=== PATIENT | male | born 1990 | race Caucasian/White ===

== ENCOUNTER 2016-08-10 09:25 | Emergency (ER) | payer SELFPAY ==
[2016-01-21 06:22] VITALS: BP 134/78
[~2016-08-10] VITALS: Ht 175.3 cm; Wt 122.5 kg
[~2016-08-10 09:25] MED LIST: HYDR50TA PO; IBUP-1060 PO; PRED-220 PO; SULF1TAB24 PO
[2016-08-10 10:28] LABS: OBC FLU VALID
[2016-08-10] MEDS ORDERED: BENZ100C PO (10:56)
--- NOTE | 2016-08-10 10:56 | PHYS DOC ---
Past Medical History Past Medical History: Anxiety, Asthma, Other Additional Past Medical Histor: CHRONIC DENTAL Past Surgical History: No Surgical History Alcohol Use: Occasionally Drug Use: Amphetamine, Cocaine Adult General Chief Complaint Chief Complaint: COUGH HPI HPI Patient is a 26 year old male with history of anxiety who presents today with upper respiratory complaints including body aches, runny nose, and a cough that began 3 days ago. Patient is also complaining of blood sugar problem. Patient states he cyst is a [employer] and she took his blood sugar which was 289 last night and this morning 89. Patient states he is concerned he could have diabetes. Review of Systems Review of Systems Constitutional: Denies fever or chills [] Eyes: Denies change in visual acuity, redness, or eye pain [] HENT: Denies nasal congestion or sore throat [] Respiratory: Denies cough or shortness of breath [] Cardiovascular: No additional information not addressed in HPI [] GI: Denies abdominal pain, nausea, vomiting, bloody stools or diarrhea [] : Denies dysuria or hematuria [] Musculoskeletal: Denies back pain or joint pain [] Integument: Denies rash or skin lesions [] Neurologic: Denies headache, focal weakness or sensory changes [] Endocrine: Blood sugar problem Allergies Allergies Allergies Coded Allergies Type Severity Reaction Last Updated Verified I S O L A T I O N *CONTACT* Allergy Unknown 01/21/16 Yes No Known Medication Allergies Allergy Unknown 01/21/16 Yes Physical Exam Physical Exam Constitutional: Well developed, well nourished, no acute distress, non-toxic appearance. [] HENT: Normocephalic, atraumatic, bilateral external ears normal, oropharynx moist, no oral exudates, nose normal. [] Eyes: PERRLA, EOMI, conjunctiva normal, no discharge. [] Neck: Normal range of motion, no tenderness, supple, no stridor. [] Cardiovascular:Heart rate regular rhythm, no murmur [] Lungs & Thorax: Bilateral breath sounds clear to auscultation [] Abdomen: Bowel sounds normal, soft, no tenderness, no masses, no pulsatile masses. [] Skin: Warm, dry, no erythema, no rash. [] Back: No tenderness, no CVA tenderness. [] Extremities: No tenderness, no cyanosis, no clubbing, ROM intact, no edema. [] Neurologic: Alert and oriented X 3, normal motor function, normal sensory function, no focal deficits noted. [] Psychologic: Affect normal, judgement normal, mood normal. [] Current Patient Data Vital Signs Vital Signs Date Time Temp Pulse Resp B/P Pulse Ox O2 Delivery O2 Flow Rate FiO2 08/10/16 09:30 98.1 118 20 97 Room Air 98.1 Lab Values Laboratory Tests Test 08/10/16 09:45 Influenza Type A Antigen Negative (NEGATIVE) Influenza Type B Antigen Negative (NEGATIVE) EKG EKG [] Radiology/Procedures Radiology/Procedures [] Course & Med Decision Making Course & Med Decision Making Pertinent Labs and Imaging studies reviewed. (See chart for details) This is a well-appearing patient who presents today with multiple complaints including productive cough, body aches, and running nose for 3 days. Patient is also concerned he could have diabetes, he states his blood sugar was 289 last night and 89 this morning. Negative influenza A and B. His upper respiratory symptoms are probably viral. Discharged with instructions to take over-the- counter medicines as needed. Provided him a primary care doctor list for follow- up for his blood sugar. His blood pressure was also 162/92, there is also a chance he could have hypertension. He provided return precautions and discharged in stable condition. Dragon Disclaimer Dragon Disclaimer This electronic medical record was generated, in whole or in part, using a voice recognition dictation system. Departure Departure Impression: Primary Impression: Upper respiratory infection Additional Impressions: Cough Accelerated hypertension Hyperglycemia Disposition: HOME, SELF-CARE Condition: STABLE Referrals: NO PCP (PCP) follow up with a doctor from the list provided in one week Patient Instructions: Upper Respiratory Infection, Adult Additional Instructions: You were seen with symptoms for upper respiratory infection. You can take over- the-counter cold medicines as needed. Your flu test was negative. You need to follow-up with the primary care doctor for your blood pressure which was 162/92 as well as a blood sugars in one week. Come back to the emergency room for any other concerning symptoms. Scripts Benzonatate (Tessalon Perle)100 Mg Capsule1 Cap PO TID #30 CAP Prov:JIN EMANUEL PATROL CAPTAIN 08/10/16 Problem Qualifiers Primary Impression: Upper respiratory infection URI type: unspecified URI Qualified Code: J06.9 - Acute upper respiratory infection, unspecified MUTUNGAJIN PATROL CAPTAIN Aug 10, 2016 10:56
== END 2016-08-10 11:09 | disposition home or self-care (01) ==
LOC: ER 09:25
DX: J06.9 Acute upper respiratory infection, unspecified (principal); M79.1 Myalgia; R73.9 Hyperglycemia, unspecified; I10 Essential (primary) hypertension; J45.909 Unspecified asthma, uncomplicated; F41.9 Anxiety disorder, unspecified; F15.10 Other stimulant abuse, uncomplicated; F14.10 Cocaine abuse, uncomplicated; Z91.041 Radiographic dye allergy status
CPT/HCPCS: 87804; 99284

== ENCOUNTER 2018-03-20 08:02 | Emergency (ER) | payer SELFPAY ==
[~2018-03-20] VITALS: Ht 175.3 cm; Wt 113.4 kg
[~2018-03-20 08:02] MED LIST changes: +BENZ100C PO
[2018-03-20 08:15] VITALS: BP 151/80
[2018-03-20] MEDS ORDERED: HYDROcodone/APAP 5/325MG 1 TAB TABLET PO ONE (09:00)
--- NOTE | 2018-03-20 09:40 | RAD ---
EXAM: AP, oblique and lateral views of the left knee DATE: 03/20/2018 8:55 AM INDICATION: LEFT KNEE PAIN AFTER FALL COMPARISON: No Prior FINDINGS/ IMPRESSION: Small left knee joint effusion. Cortical offset is seen at the posterior aspect of the tibial spine, possibly nondisplaced fracture. This can be further assessed by CT if clinically indicated. Electronically signed by: Reynaldo Hensley MD (03/20/2018 9:36 AM) [facility]
[2018-03-20] MEDS ORDERED: HYDR-2766 PO (09:55)
--- NOTE | 2018-03-20 09:55 | PHYS DOC ---
Past Medical History Past Medical History: Anxiety, Asthma, Other Additional Past Medical Histor: CHRONIC DENTAL Past Surgical History: No Surgical History Alcohol Use: None Drug Use: Amphetamine, Cocaine Adult General Chief Complaint Chief Complaint: KNEE INJURY HPI HPI Patient is a 27 year old M who presents with left knee pain. Patient reports he twisted his knee late last night. It felt like it gave out. He reports distant prior injury to the knee. He reports pain, swelling. Denies other injury. Review of Systems Review of Systems Cardiovascular: No additional information not addressed in HPI [] Musculoskeletal: Denies back pain. Reports left knee swelling and pain [] Integument: Denies rash or skin lesions [] Neurologic: Denies focal weakness or sensory changes [] All other systems were reviewed and found to be within normal limits, except as documented in this note. Current Medications Current Medications Current Medications Medications (Trade) Dose Ordered Sig/Josee Start Time Stop Time Status Last Admin Dose Admin Acetaminophen/ Hydrocodone Bitart (Lortab 5/325) 1 tab 1X ONCE 03/20/18 09:00 03/20/18 09:01 DC 03/20/18 08:56 1 TAB Allergies Allergies Allergies Coded Allergies Type Severity Reaction Last Updated Verified I S O L A T I O N *CONTACT* Allergy Unknown 01/21/16 Yes No Known Medication Allergies Allergy Unknown 01/21/16 Yes Physical Exam Physical Exam Constitutional: Well developed, well nourished, no acute distress, non-toxic appearance. [] HENT: Normocephalic, atraumatic Eyes: PERRLA, EOMI, conjunctiva normal, no discharge. [] Neck: Normal range of motion, no tenderness, supple, no stridor. [] Skin: Warm, dry, no erythema, no rash. [] Extremities: Tenderness to left knee with swelling and limited ROM d/t pain Neurologic: Alert and oriented X 3, normal motor function, normal sensory function, no focal deficits noted. [] Psychologic: Affect normal, judgement normal, mood normal. [] Current Patient Data Vital Signs Vital Signs Date Time Temp Pulse Resp B/P (MAP) Pulse Ox O2 Delivery O2 Flow Rate FiO2 03/20/18 08:15 98.7 89 18 151/80 (103) 97 Room Air 98.7 EKG EKG [] Radiology/Procedures Radiology/Procedures PATIENT: MINA RODRIGUEZ LACCOUNT: [id number]#: [id number] : 1990 LOCATION: ER AGE: 27 SEX: M EXAM STATUS: PRE ER ORD. PHYSICIAN: ROSALIA ANDERSON APRN REASON: twisted, mid knee pain PROCEDURE: KNEE LEFT 3V EXAM: AP, oblique and lateral views of the left knee DATE: 03/20/2018 8:55 AM INDICATION: LEFT KNEE PAIN AFTER FALL COMPARISON: No Prior FINDINGS/ IMPRESSION: Small left knee joint effusion. Cortical offset is seen at the posterior aspect of the tibial spine, possibly nondisplaced fracture. This can be further assessed by CT if clinically indicated. Electronically signed by: Reynaldo Cox MD (03/20/2018 9:36 AM) [facility] DICTATED and SIGNED BY: REYNALDO COX MD DATE: 03/20/18 0933 [] Course & Med Decision Making Course & Med Decision Making Pertinent Labs and Imaging studies reviewed. (See chart for details) Plan: knee immobilizer, crutches, f/u with ortho, lortab rx, return precautions reviewed Dragon Disclaimer Dragon Disclaimer This electronic medical record was generated, in whole or in part, using a voice recognition dictation system. Departure Departure Impression: Primary Impression: Fracture of tibial spine, closed Disposition: 01 HOME, SELF-CARE Condition: GOOD Referrals: KEVEN NORMAN MD Patient Instructions: Tibial Plateau Fracture with [facility] Scripts Hydrocodone Bit/Acetaminophen (HYDROCODONE-APAP 10-325 ) 1 Each Tablet 1 TAB PO PRN Q6HRS PRN for PAIN, #30 TAB 0 Refills Prov: ROSALIA ANDERSON APRN 03/20/18 Problem Qualifiers Primary Impression: Fracture of tibial spine, closed Encounter type: initial encounter Fracture alignment: nondisplaced Laterality: left Qualified Codes: S82.115A - Nondisplaced fracture of left tibial spine, initial encounter for closed fracture ROSALIA ANDERSON APRN Mar 20, 2018 09:55
== END 2018-03-20 10:23 | disposition home or self-care (01) ==
LOC: ER 08:02
DX: S82.115A Nondisplaced fracture of left tibial spine, initial encounter for closed fracture (principal); F41.9 Anxiety disorder, unspecified; J45.909 Unspecified asthma, uncomplicated; Z91.041 Radiographic dye allergy status; X50.1XXA Overexertion from prolonged static or awkward postures, initial encounter; Y93.89 Activity, other specified; Y92.89 Other specified places as the place of occurrence of the external cause; Y99.8 Other external cause status
CPT/HCPCS: 29505; 73562; 99284

== ENCOUNTER 2018-10-18 08:50 | Emergency (ER) | payer SELFPAY ==
[~2018-10-18] VITALS: Ht 175.3 cm; Wt 117.9 kg
[~2018-10-18 08:50] MED LIST changes: +HYDR-2769 PO
[2018-10-18 08:55] VITALS: BP 153/106
[2018-10-18] MEDS ORDERED: PRED50TA PO (09:13)
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
[2018-10-18] MEDS ORDERED: DEXAMETHASONE SOD PHOS 4 MG/ML VIAL IM ONE (09:15)
== END 2018-10-18 09:28 | disposition home or self-care (01) ==
LOC: ER 08:50
DX: L25.9 Unspecified contact dermatitis, unspecified cause (principal); F41.9 Anxiety disorder, unspecified; J45.909 Unspecified asthma, uncomplicated; F17.200 Nicotine dependence, unspecified, uncomplicated; Z86.14 Personal history of Methicillin resistant Staphylococcus aureus infection; Z91.041 Radiographic dye allergy status
CPT/HCPCS: 96372; 99283; J1100

== ENCOUNTER 2021-09-08 15:50 | Emergency (ER) | payer SELFPAY ==
[~2021-09-08] VITALS: Ht 177.8 cm; Wt 110.3 kg
[~2021-09-08 15:50] MED LIST changes: +PRED50TA PO
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
[2021-09-08] MEDS ORDERED: IOHEXOL 300 MG/ML 100ML VIAL. IV ONE (16:15)
[2021-09-08] MEDS ORDERED: CONTRAST GIVEN. MC PRN (16:15)
[2021-09-08] MEDS ORDERED: IV NORMAL SALINE 1000ML BAG 1,000 ML IV ONE (16:15)
[2021-09-08] MEDS ORDERED: MORPHINE SULFATE 4 MG/ML INJ. IVP ONE ×2 (16:15→17:00)
[2021-09-08 16:22] LABS: BASO # 0.1 x10^3/uL (0.0-0.2); BASO % 1 % (0-3); EOS # 0.1 x10^3/uL (0.0-0.7); EOS % 1 % (0-3); HEMOGLOBIN 13.7 g/dL (13.0-17.5); LYMPH # 2.4 x10^3/uL (1.0-4.8); LYMPH % 26 % (24-48); MEAN CORPUSCULAR HEMOGLOBIN 32 pg (25-35); MEAN CORPUSCULAR HGB CONC 33 g/dL (31-37); MEAN CORPUSCULAR VOLUME 96 fL (79-100); MONO # 0.7 x10^3/uL (0.0-1.1); MONO % 7 % (0-9); NEUT # 6.2 x10^3/uL (1.8-7.7); NEUT % 66 % (31-73); PLATELET COUNT 272 x10^3/uL (140-400); RED BLOOD COUNT 4.26 x10^6/uL (4.30-5.70); WHITE BLOOD COUNT 9.5 x10^3/uL (4.0-11.0)
[2021-09-08 16:32] LABS: CALCIUM 8.4 mg/dL (8.5-10.1); CREATININE 1.2 mg/dL (0.7-1.3); GFR 70.6; POTASSIUM 3.4 mmol/L (3.5-5.1)
[2021-09-08 16:33] LABS: PROTHROMBIN TIME PATIENT 13.6 SEC (11.7-14.0)
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
[2021-09-08] MEDS ORDERED: LIDOCAINE 1%/EPI 1:100,000 20 ML VIAL. INJ ONE (17:45)
[2021-09-08] MEDS ORDERED: HYDR-2761 PO (18:14)
[2021-09-08 18:30] VITALS: BP 131/85
== END 2021-09-08 18:35 | disposition home or self-care (01) ==
LOC: ER 15:50
DX: S21.211A Laceration without foreign body of right back wall of thorax without penetration into thoracic cavity, initial encounter (principal); J45.909 Unspecified asthma, uncomplicated; F17.200 Nicotine dependence, unspecified, uncomplicated; Z86.14 Personal history of Methicillin resistant Staphylococcus aureus infection; Z91.041 Radiographic dye allergy status; Y28.8XXA Contact with other sharp object, undetermined intent, initial encounter; Y93.89 Activity, other specified; Y92.89 Other specified places as the place of occurrence of the external cause; Y99.8 Other external cause status
CPT/HCPCS: 36415; 71260; 74177; 80048; 85025; 85610; 85730; 86850; 86900; 86901; 96361; 96374; 96376; 99285; G0480; J2270; J3490; J7030; Q9967